=== PATIENT | male | born 1970 | race Caucasian/White ===

== ENCOUNTER → 2018-03-20 | Outpatient (CLI) | payer OTHER | LOC: M.RAD 14:24 | DX: M48.05 Spinal stenosis, thoracolumbar region (principal); M25.551 Pain in right hip ==

== ENCOUNTER → 2018-11-06 | Outpatient (CLI) | payer OTHER | LOC: M.RAD 14:32 | DX: M54.41 Lumbago with sciatica, right side (principal); M43.26 Fusion of spine, lumbar region ==

== ENCOUNTER → 2018-11-20 | Outpatient (CLI) | payer OTHER | LOC: M.MRI 16:20 | DX: M51.17 Intervertebral disc disorders with radiculopathy, lumbosacral region (principal); M51.85 Other intervertebral disc disorders, thoracolumbar region; M51.86 Other intervertebral disc disorders, lumbar region ==

== ENCOUNTER → 2018-12-30 | Outpatient (CLI) | payer OTHER ==
[~2018-12-30] MED LIST: FLEXERIL PO; OMEPRAZOLE40 MG PO; ROPINIROLE HCL3 MG PO; TRAMADOL 50 MG50 MG PO
== END ==
LOC: M.PC 05:14
DX: M47.816 Spondylosis without myelopathy or radiculopathy, lumbar region (principal); M51.36 Other intervertebral disc degeneration, lumbar region; M96.1 Postlaminectomy syndrome, not elsewhere classified

== ENCOUNTER → 2019-01-13 | Outpatient (CLI) | payer OTHER ==
[~2019-01-13] MED LIST changes: +ACETAMINOPHEN-1 EAC1 PO; +LIORESAL 10 MG10 MG PO
== END | disposition home or self-care (01) ==
LOC: M.PC 05:23
DX: M47.816 Spondylosis without myelopathy or radiculopathy, lumbar region (principal); Z79.899 Other long term (current) drug therapy

== ENCOUNTER → 2019-01-18 | Outpatient (CLI) | payer OTHER | LOC: M.PC 08:55 | DX: M47.816 Spondylosis without myelopathy or radiculopathy, lumbar region (principal); M51.36 Other intervertebral disc degeneration, lumbar region ==